=== PATIENT | male | born 1985 | race Caucasian/White ===

== ENCOUNTER 2024-01-11 01:25 | Emergency (ER) | payer MEDICAID ==
[~2024-01-11] VITALS: Ht 182.9 cm; Wt 89.0 kg
[2024-01-11 01:28] VITALS: O2SAT 100
[2024-01-11 02:38] LABS: BASOPHILS % 0.6 % (0.0-2.0); EOSINOPHILS % 2.7 % (0.0-5.0); HEMATOCRIT. 42.4 % (42.0-52.0); HEMOGLOBIN. 14.1 g/dL (14.0-18.0); MEAN CORPUSCULAR HGB CONC 33.3 g/dL (31.0-37.0); MEAN PLATELET VOLUME 7.5 fl (7.4-10.4); MONOCYTES % 6.3 % (2.0-8.0); NEUTROPHILS % 77.4 % (40.0-76.0); PLATELET 273 x1000/uL (130-400); RED BLOOD CELL COUNT 4.71 mill/uL (4.7-6.1); RED CELL DISTRIBUTION WIDTH 13.6 % (11.6-14.6); WHITE BLOOD COUNT 10.9 x1000/uL (4.5-11.0)
[2024-01-11] MEDS: SODIUM CHLORIDE 0.9% 1,000 ML IV ONE (02:40)
[2024-01-11] MEDS: KETOROLAC 15MG/ML VIAL IV ONE (02:40)
[2024-01-11] MEDS: LEVETIRACETAM 500MG PREMIX 100 ML IV ONE (02:40)
[2024-01-11 02:54] LABS: ALANINE AMINOTRANSFERASE 21 IU/L (10-49); ALBUMIN 4.3 g/dL (3.2-4.8); ASPARTATE AMINOTRANSFERASE 31 IU/L (<34); BILIRUBIN TOTAL 0.3 mg/dL (0.1-1.0); CALCIUM 8.9 mg/dL (8.7-10.4); CARBON DIOXIDE 31 mEq/L (21-32); CHLORIDE 104 mEq/L (98-107); CREATININE 1.3 mg/dL (0.6-1.3); GLUCOSE 89 mg/dL (70-105); POTASSIUM 3.3 mEq/L (3.5-5.1); PROTEIN TOTAL 7.2 g/dL (6.0-8.3); SODIUM 141 mEq/L (136-145); UREA NITROGEN BLOOD 17 mg/dL (9-23)
[2024-01-11 03:04] VITALS: BP 133/83; PULSE 86; RESP 18; TEMP 98.1
[2024-01-11] MEDS ORDERED: POTASSIUM CHLORIDE 20MEQ/PACKET PO ONE (03:15)
[2024-01-11] MEDS ORDERED: IBUP-2028 MT (06:13)
[2024-01-11] MEDS ORDERED: KEPP500 PO (06:13)
[2024-01-11] MEDS: POTASSIUM CHLORIDE 20MEQ/PACKET PO NR (07:16)
== END 2024-01-11 07:18 | disposition home or self-care (01) ==
LOC: EDBD 01:32 → ER 01:32
DX: S02.2XXA Fracture of nasal bones, initial encounter for closed fracture (principal); G40.909 Epilepsy, unspecified, not intractable, without status epilepticus; Y08.89XA Assault by other specified means, initial encounter; Y93.89 Activity, other specified; Y92.89 Other specified places as the place of occurrence of the external cause; Y99.8 Other external cause status
CPT/HCPCS: 80053; 85025; 36415; 70450; 70486; 93005; 96365; 96375; 99285; J1953; J1885; J7030; Z7610 ×2; A4565